=== PATIENT | male | born 1985 | race Caucasian/White ===

== ENCOUNTER 2017-12-11 19:25 | Emergency (ER) | payer OTHER ==
[2017-12-11] MEDS: HYDROCODONE/APAP (5/325) TAB PO (22:32)
[2017-12-11] MEDS: DIPHENHYDRAMINE 2.5 MG/ML 5ML CUP PO (22:32)
== END 2017-12-11 22:49 | disposition home or self-care (01) ==
LOC: FTE 19:25
DX: B02.9 Zoster without complications (principal)
CPT/HCPCS: 99283